=== PATIENT | male | born 1950 | race Caucasian/White ===

== ENCOUNTER 2019-07-06 01:34 | Emergency (ER) | payer MEDICARE, OTHER, SELFPAY ==
[2019-07-06] VITALS (9 sets, daily range): BP systolic 128–182; BP diastolic 77–118; PULSE 63–93; RESP 16–18; TEMP 36.6; O2SAT 95–98
--- NOTE | ~2019-07-06 | CT_ITS ---
EXAMINATION: CT brain wo con DATE: 07/06/2019 02:41 INDICATION: Headache. Dizziness. TECHNIQUE: Computed tomography (CT) of the head was performed without intravenous contrast. The mA wa s adjusted according to patient size. Iterative reconstruction technique was employed. Exam dose: 68 1.00 mGy-cm total exam DLP. COMPARISON: 01/22/2018 CT brain FINDINGS: Vertebral, basilar and bilateral carotid siphon internal carotid artery calcifications. There are bilateral superior cerebellar hemispheric infarcts, not present on 01/22/2018. These may be subacute or older. There is nonspecific diminished attenuation of the cerebral white matter, likely due to chronic small vessel ischemic changes. There is bilateral cerebral atrophy with predilection for the frontal lobes. No intraluminal mass lesion or hemorrhage, recent cerebrovascular accident. No midline shift or mass effects. No subdural or epidural hematoma. No fracture or bone destruction of the cranial vault. There is a small polyp or mucous retention cyst in the posterolateral left sphenoid sinus. The includ ed paranasal sinuses and mastoid air cells are otherwise normally developed and aerated. No fracture or bone destruction of the cranial vault. 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 Reviewed, dictated and finalized at [facility].
--- NOTE | ~2019-07-06 | CT_ITS ---
EXAMINATION: CTA brain carotid DATE: 07/06/2019 03:37 INDICATION: Cerebellar stroke TECHNIQUE: Computed tomographic angiography (CTA) of the head was performed without and with 100 mL O mnipaque-350 intravenous contrast. CTA of the neck was performed with intravenous contrast. The dose- length product was 1391.21 mGy-cm. Maximum intensity projection and volume rendered 3D-reconstruction s were created by the technologist on a separate workstation. Automated exposure control and iterativ e reconstruction technique were employed. COMPARISON: None. FINDINGS: HEAD CTA: Again noted are areas of bilateral low attenuation in the superior cerebellar hemispheres. There is no intracranial hemorrhage or abnormal mass lesion. The ventricles are normal. There is no a bnormal mass effect or midline shift. The basal cisterns are patent. The orbits are normal. The paran manuel sinuses, mastoids and calvarium are normal. There are areas of segmental occlusion of the left vertebral artery. There is no significant stenosis of the basilar artery or posterior cerebral arteries. There is occlusion at the origin of the left a nterior inferior cerebellar artery with distal reconstitution. There is no significant stenosis of th e intracranial internal carotid arteries or the anterior or middle cerebral arteries. The anterior co mmunicating artery and posterior communicating arteries are normal. There is no aneurysm. NECK CTA: There is no cervical lymphadenopathy. No abnormal enhancement is identified. The heart size is normal. There are patchy groundglass opacities of the right lung apex. There is 0% stenosis of the proximal right internal carotid artery relative to normal distal artery l umen diameter (NASCET criteria). There is 0% stenosis of the proximal left internal carotid artery re lative to normal distal artery lumen diameter. IMPRESSION: 1. 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 2. 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 3. 0% stenosis of the proximal right internal carotid artery relative to normal distal artery lumen d iameter (NASCET criteria). 4. 0% stenosis of the proximal left internal carotid artery relative to normal distal artery lumen di ameter. 5. Areas of low attenuation in the bilateral cerebellar hemispheres, possibly subacute infarctions. These findings were discussed with Dr. Madisyn Dietrich MD in the Emergency Department at [address] [facility] on 07/06/2019 by the [facility]. Reviewed, dictated and finalized at [facility] IMPRESSION: 1. 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 2. 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 3. 0% stenosis of the proximal right internal carotid artery relative to normal distal artery lumen diameter (NASCET criteria). 4. 0% stenosis of the proximal left internal carotid artery relative to normal distal artery lumen diameter. 5. Areas of low attenuation in the bilateral cerebellar hemispheres, possibly s ubacute infarctions. These findings were discussed with Dr. Madisyn Dietrihc MD in the Emergency Department at 0405 hours on 07/06/2019 by the [facility].
--- NOTE | 2019-07-06 01:39 | ECG_ITS ---
Measurements Intervals [place] Rate: 69 P: 47 MI: 187 QRS: -30 QRSD: 105 T: 10 QT: 389 QTc: 419 Interpretive Statements SINUS RHYTHM DELAYED PRECORDIAL R/S TRANSITION BORDERLINE ECG Electronically Signed On 07-06-2019 9:33:34 CDT by Forest Carmona D.O.
--- NOTE | 2019-07-06 01:56 | ED_ITS ---
I attest that this documentation has been prepared under the direction and in the presence of Madisyn Dietrich MD. Jewel Gonzalez Scribe 07/06/19;01:57 HPI - Recheck/Abnormal Lab/Rx General Chief Complaint: Recheck/Abnormal Lab/Rx Stated Complaint: Weakness/ headache Time Seen by Provider: 07/06/19 02:07 Source: patient and RN notes reviewed Mode of arrival: EMS Limitations: no limitations History of Present Illness HPI narrative: A 69 y/o male presents to the ED via EMS from home d/t HTN Related Data Allergies Allergy/AdvReac Type Severity Reaction Status Date / Time propoxyphene Allergy Unknown Verified 11/17/13 09:38 PMFSH Family History Family History (Updated 12/18/13 @ 07:13 by DOCTOR UNKNOWN) Other Depression Family history of arthritis Family history of gout Malignant neoplasm of prostate Social History Social History Smoking status: Former smoker Second hand tobacco smoke exposure: Yes Smoking end date: 04/23/15 Alcohol intake: current Gender identity (if verbalized by the patient): Male Course Vital Signs Vital signs: Vital Signs Temperature 97.9 F 07/06/19 01:35 Pulse Rate 72 07/06/19 01:35 Respiratory Rate 16 07/06/19 01:35 Blood Pressure 182/103 H 07/06/19 01:35 Pulse Oximetry 98 07/06/19 01:35 Temperature 97.9 F 07/06/19 01:35 Pulse Rate 74 07/06/19 01:43 Respiratory Rate 16 07/06/19 01:35 Blood Pressure 182/103 H 07/06/19 01:35 Pulse Oximetry 98 07/06/19 01:35
--- NOTE | 2019-07-06 02:14 | ED.DIZZY ---
HPI - Dizziness General Chief Complaint: Dizziness Stated Complaint: Weakness/ headache Time Seen by Provider: 07/06/19 02:07 Source: patient and RN notes reviewed Mode of arrival: EMS Limitations: no limitations History of Present Illness HPI Narrative: A 69 y/o male, with a hx of HTN, presents to the ED via EMS from home with intermittent dizziness for the past couple days. He states that the dizziness feels like the room is spinning and like he is going to fall. He reports associated generalized weakness, nausea, decreased appetite, mild rhinorrhea, and a constant BARNES. He notes that his dizziness occurs for roughly 1-2 hours every 6 hours. He also notes that it is aggravated when he stands up or moves his head and is alleviated when he lies down. He states that he hasn't been on his medications for a month because he hasn't had enough money to afford them. He denies having his eyes open or closed having any effect on his dizziness. He also denies any vomiting, CP, SOB, ABD pain, fevers, cough, sore throat, focal weakness, or new numbness. MD elicited complaint: dizziness Onset (ago): day(s) (a couple) Timing: intermittent Description: room spinning and off-balance Context: other (been off of medications) Exacerbating factors: movement/ambulation (moving his head) and change in body position (standing up) Relieving factors: lying down Associated symptoms: nausea, weakness (generalized) and other (decreased appetie, mild rhinorrhea, and a constant BARNES) Related Data Allergies Allergy/AdvReac Type Severity Reaction Status Date / Time propoxyphene Allergy Unknown Verified 11/17/13 09:38 Review of Systems Review of Systems: All systems reviewed & are unremarkable except as noted in HPI and below Constitutional: Constitutional: Denies fever(s), Reports poor appetite and Reports weakness (generalized) ENT: Reports nasal discharge (mild) and Denies sore throat Cardiovascular: Cardiovascular: Denies chest pain Respiratory: Respiratory: Denies cough and Denies dyspnea Gastrointestinal: Gastrointestinal: Denies abdominal pain, Reports nausea and Denies vomiting Neurologic: Reports dizziness, Reports headache(s) (constant), Denies focal weakness and Denies numbness (new) [facility] Past Medical History Medical History (Updated 07/06/19 @ 04:56 by Madisyn Dietrich MD) Depression H/O: HTN (hypertension) Hx of fracture of wrist SHELBY. Peripheral neuropathy Surgical History Surgical History (Updated 07/06/19 @ 02:22 by Jewel Gonzalez) H/O left wrist surgery H/O right wrist surgery Family History Family History (Updated 12/18/13 @ 07:13 by DOCTOR UNKNOWN) Other Depression Family history of arthritis Family history of gout Malignant neoplasm of prostate Social History Social History (Updated 07/06/19 @ 02:23 by Jewel Gonzalez) Smoking status: Light tobacco smoker Tobacco type: cigars Second hand tobacco smoke exposure: Yes Alcohol intake: current Gender identity (if verbalized by the patient): Male Comments PCP: Dr. Do. Exam Const: General: cooperative, no acute distress and alert Nutritional Appearance: well nourished Orientation/consciousness: patient oriented x3 Limitations: no limitations HENMT: Mouth: Yes lip normal and Yes moist mucous membranes Resp: Effort & Inspection: normal respiratory effort Auscultation: clear to auscultation bilaterally Cardio: Rate: regular rate Rhythm: regular rhythm GI: GI Palp: Yes Soft to palpation and No Tenderness to palpation present (GI) Auscultation: normal bowel sounds Skin: General skin exam: normal color Neuro: General: patient oriented x3 Cranial nerves: Yes CN's II-XII intact bilaterally, Yes Equal, round and reactive pupils present, Yes Bilaterally intact EOM present and Yes Nystagmus not present Cognition (Neuro): normal cognition Speech: normal speech Motor exam (neuro): 5/5 motor strength present throughout and Pronator motor function no
[2019-07-06] MEDS: MECLIZINE HCL 25 MG TABLET PO (02:41)
[2019-07-06] MEDS: ONDANSETRON INJ 4 MG/2 ML VIAL IV PUSH ×2 (02:42→04:16)
[2019-07-06 02:45] LABS: Basophils Percent Auto 0.4 % (0.2-1.2); Eosinophils Absolute Auto 3.8 K/mm3 (0-0.3); Eosinophils Percent Auto 55.7 % (0-4.4); Hemoglobin 15.2 g/dL (14.0-18.0); Immature Granulocyte Absolute 0.01 K/mm3 (0.00-0.031); Immature Granulocyte Percent A 0.1 % (0-0.5); Lymphocytes Absolute Auto 0.87 K/mm3 (0.9-3.2); Lymphocytes Percent Auto 12.8 % (18.3-44.2); Mean Corpuscular HGB Conc 34.5 g/dl (32-36); Mean Corpuscular Hemoglobin 32.1 pg (26-34); Mean Corpuscular Volume 92.8 fl (80-100); Mean Platelet Volume 9.2 fl (7.4-10.4); Monocytes Absolute Auto 0.5 K/mm3 (0.1-0.6); Monocytes Percent Auto 7.2 % (2.6-8.5); Neutrophils Absolute Auto 1.6 K/mm3 (1.3-6.7); Neutrophils Percent Auto 23.8 % (45.5-73.1); Platelet Count Result 241 k/mm3 (150-375); Red Blood Count 4.74 M/mm3 (4.6-6.20); Red Cell Distribution Width 13.4 % (11.5-14.5); White Blood Count 6.8 K/mm3 (4.5-10.0)
[2019-07-06 02:58] LABS: Alanine Aminotransferase 15 U/L (4-50); Albumin Level 4.1 g/dL (3.5-5.1); Alkaline Phosphatase 50 U/L (38-126); Aspartate Amino Transferase 24 U/L (17-59); Bilirubin,Total 0.8 mg/dL (0.2-1.3); Blood Urea Nitrogen 19 mg/dL (9-20); Calcium 9.4 mg/dL (8.4-10.2); Carbon Dioxide 22 mmol/L (22-30); Chloride 104 mmol/L (98-107); Estimated CRCL calculation 79 ml/min; Estimated Glomerular Filt Rate > 60; Glucose 98 mg/dL (75-110); Potassium 3.9 mmol/L (3.4-5.0); Sodium 137 mmol/L (137-145)
[2019-07-06 02:59] LABS: Prothrombin Time 13.1 Seconds (11.1-14.7)
[2019-07-06 03:10] LABS: Troponin I < 0.012 ng/mL (0.000-0.034)
[2019-07-06] MEDS: PROCHLORPERAZINE EDISYLATE 10 MG/2 ML VIAL IV PUSH (04:31)
== END 2019-07-06 06:37 | disposition short-term general hospital (02) ==
PROVIDERS: Emergency Provider Emergency Medicine; PCP Family Medicine
DX: I63.212 Cerebral infarction due to unspecified occlusion or stenosis of left vertebral artery (principal); R29.700 NIHSS score 0; I10 Essential (primary) hypertension; G62.9 Polyneuropathy, unspecified; I67.2 Cerebral atherosclerosis; R94.31 Abnormal electrocardiogram [ECG] [EKG]
CPT/HCPCS: 36415; 70450; 70496; 70498; 80053; 84484; 85025; 85610; 85730; 93005; 96374; 96375; 96376; 99285; A9270; J0780; J2405; Q9967